=== PATIENT | male | born 1980 | race Caucasian/White ===

== ENCOUNTER 2021-08-16 19:35 | Emergency (ER) | payer MEDICAID, OTHER ==
[2021-08-16] MEDS ORDERED: Benzonatate 100 MG Cap PO ONE (20:01)
[2021-08-16] MEDS ORDERED: Albuterol 6.7 GM Inhaler INH ONE (20:36)
--- NOTE | 2021-08-16 20:44 | EDM.PDOC ---
ED HPI GENERAL MEDICAL PROBLEM - General Chief Complaint: General Stated Complaint: shortness of breath Time Seen by Provider: 08/16/21 20:00 Source of Information: Reports: Patient, Significant Other History Limitations: Reports: No Limitations - History of Present Illness INITIAL COMMENTS - FREE TEXT/NARRATIVE: Patient presents to the ED Covid positive since the with symptoms since the . He was seen in the [place] ED and given MAB. Was not sent home with anything for outpatient treatment. He is the only one at home with Covid, rest are vaccinated. [place] but quarantining. He has congestion in his chest, feels short of breath with activity and has coughing fits that don't stop. He has taken a few doses of motrin, not using any inhalers or cough medications. No longer having fevers. Feeling very fatigued and wanted evaluation in the ED. 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 He has been restless at night. Duration: Getting Worse Treatments DOGGER: Reports: Other (see below) Other Treatments DOGGER: ibuprofen right ear pain Pain Score (Numeric/FACES): 5 - Related Data Allergies Allergy/AdvReac Type Severity Reaction Status Date / Time No Known Allergies Allergy Verified 08/16/21 19:42 Home Meds: Home Meds Acetaminophen [Tylenol] 650 mg PO Q4HR PRN 08/16/21 [History] Albuterol [Proventil Neb Soln] 1.25 mg NEB Q4HRRT PRN #30 ml 08/16/21 [Rx] Allopurinol [Zyloprim] 300 mg PO DAILY PRN 08/16/21 [History] Amoxicillin 1,000 mg PO ONETIME 08/16/21 [History] Benzonatate [Tessalon Perles] 100 mg PO Q8H PRN #30 cap 08/16/21 [Rx] Budesonide 1 mg IH BID #30 ampul.neb 08/16/21 [Rx] Ibuprofen 600 mg PO Q6HR PRN 08/16/21 [History] Past Medical History HEENT History: Reports: Other (See Below) Other HEENT History: deviated septum Musculoskeletal History: Reports: Gout Endocrine/Metabolic History: Reports: Obesity/BMI 30+ - Past Surgical History HEENT Surgical History: Reports: Other (See Below) Other HEENT Surgeries/Procedures: deviated septum repair Social & Family History - Tobacco Use Tobacco Use Status *Q: Former Tobacco User Years of Tobacco use: 3 Packs/Tins Daily: 1 Used Tobacco, but Quit: Yes Month/Year Tobacco Last Used: 9 yr AGO - Caffeine Use Caffeine Use: Reports: None - Recreational Drug Use Recreational Drug Use: No ED ROS GENERAL - Review of Systems Review Of Systems: See Below Constitutional: Reports: Malaise, Weakness, Night Sweats, Decreased Appetite Respiratory: Reports: Shortness of Breath, Pleuritic Chest Pain, Cough, Sputum Cardiovascular: Reports: Dyspnea on Exertion, Lightheadedness. Denies: Edema Endocrine: Reports: Fatigue GI/Abdominal: Reports: No Symptoms. Denies: Abdominal Pain, Black Stool, Bloody Stool, Diarrhea, Hematemesis, Melena : Reports: No Symptoms Musculoskeletal: Reports: Muscle Pain Skin: Denies: No Symptoms Neurological: Reports: Dizziness Psychiatric: Reports: No Symptoms ED EXAM, GENERAL - Physical Exam Exam: See Below Exam Limited By: No Limitations General Appearance: Alert, WD/WN, No Apparent Distress Eye Exam: Bilateral Eye: EOMI, Normal Inspection, PERRL Nose: Normal Inspection, Normal Mucosa Throat/Mouth: Normal Inspection, Normal Teeth, Normal Voice Head: Atraumatic Neck: Normal Inspection Respiratory/Chest: Decreased Breath Sounds (at bases), Other (increased work of breathing, no restractions, no rub or crackles) Cardiovascular: Normal Peripheral Pulses, Regular Rate, Rhythm, No Edema, No Murmur GI/Abdominal: Normal Bowel Sounds, Soft Extremities: Normal Inspection, Normal Range of Motion, Non-Tender, No Pedal Edema Neurological: Alert, Oriented, CN II-XII Intact, Normal Cognition, No Motor/Sensory Deficits #1 Interpretation EKG Date: 08/16/21 Time: 20:21 Rhythm: NSR Rate (Beats/Min): 83 Justin: Normal P-Wave: Present QRS: Normal ST-T: Other (slight elevation in V1-2) QT: Normal Comparison: NA - No Prior EKG Course - Vital Signs Last Recorded V/S: Last Vital Signs Temp 37.7 C 08/16/21 19:36 Pulse 82 08/16/21 19:44 Resp 24 H 08/16/21 19:44 BP 128/77 08/16/21 19:44 Pulse Ox 97 08/16/21 19:44 - Orders/Labs/Meds Orders: Active Orders 24 hr Category Date Time Status EKG Documentation Completion [RC] ASDIRECTED Care 08/16/21 20:02 Ordered Incentive Spirometry [RT Incentive Spirometry] [RC] Care 08/16/21 20:37 Ordered Q1HWA CBC WITH AUTO DIFF [HEME] Stat Lab 08/16/21 20:00 Ordered COMPREHENSIVE METABOLIC PN,CMP [CHEM] Stat Lab 08/16/21 20:00 Ordered CRP [C-REACTIVE PROTEIN] [CHEM] Stat Lab 08/16/21 20:00 Ordered D-DIMER QUANTITATIVE [COAG] Stat Lab 08/16/21 20:00 Ordered TROPONIN I HIGH SENSITIVITY [CHEM] Stat Lab 08/16/21 20:00 Ordered EKG 12 Lead [EK] Stat Ther 08/16/21 20:01 Ordered Meds: Medications Discontinued Medications Generic Name Dose Route Start Last Admin Trade Name Blaineq PRN Reason Stop Dose Admin Albuterol 0 gm 08/16/21 20:36 Albuterol 6.7 Gm Inhaler INH 08/16/21 20:37 ONETIME ONE Benzonatate 200 mg 08/16/21 20:01 Benzonatate 100 Mg Cap PO 08/16/21 20:02 ONETIME ONE - Re-Assessments/Exams Free Text/Narrative Re-Assessment/Exam: 08/16/21 20:49 long discussion with and patient. Has normal vitals other than respiratory rate. Can offer lab evaluation, ekg. Will send home with albuterol inhaler, nebulizer for albuterol and budesonide, tessalon and discussed delsym cough medication. incentive spirometer 10 repetitions every hour while awake. prone sleeping and laying for at least 12 hours. 08/16/21 21:02 was not able to get enough blood for everything and patient refuses further attempts. did ambulate him and he did not drop his oxygen sats below 98%. Departure - Departure Time of Disposition: 21:00 Disposition: Home, Self-Care 01 Condition: Fair Clinical Impression: COVID-19, Cough - Discharge Information *PRESCRIPTION DRUG MONITORING PROGRAM REVIEWED*: Not Applicable *COPY OF PRESCRIPTION DRUG MONITORING REPORT IN PATIENT ALE: Not Applicable Prescriptions: Budesonide 1 mg IH BID #30 ampul.neb Albuterol [Proventil Neb Soln] 1.25 mg NEB Q4HRRT PRN #30 ml PRN Reason: Cough Benzonatate [Tessalon Perles] 100 mg PO Q8H PRN #30 cap PRN Reason: Cough Instructions: COVID-19 Frequently Asked Questions, 10 Things You Can Do to Manage Your COVID-19 Symptoms at Home - [facility] (03/09/2021), Prone Position Therapy, How to Use an Incentive Spirometer, Incentive Spirometer Record Additional Instructions: Use the tessalon perrles to help with cough every 8 hours along with Delsym cough medication over the counter. Take motrin for body aches with food. Use the incentive spirometer 10 repetitions every hour while awake Use the nebulizer that you purchase at the pharmacy with albuterol every 4 hours for chest tightness or cough. this will make you feel jittery and make your heart rate fast. Use the budesonide twice a day and try to have at least 2 hours between this and the albuterol The blood tests we did get revealed no heart inflammation or heart attack, normal electrolytes and liver and kidney function. Stay well hydrated. remember that even after a 10 day quarantine some people are still positive for covid and can continue to spread it. Wear a face mask when out and about Follow up with your PCP if you continue to feel like you have covid long haul syndrome Sepsis Event Note (ED) - Evaluation Sepsis Screening Result: No Definite Risk - Focused Exam Vital Signs: Vital Signs Temp Pulse Resp BP Pulse Ox 08/16/21 19:44 82 24 H 128/77 97 08/16/21 19:36 37.7 C 86 21 H 133/78 99 - My Orders Last 24 Hours: My Active Orders 08/16/21 20:00 CBC WITH AUTO DIFF [HEME] Stat COMPREHENSIVE METABOLIC PN,CMP [CHEM] Stat CRP [C-REACTIVE PROTEIN] [CHEM] Stat D-DIMER QUANTITATIVE [COAG] Stat TROPONIN I HIGH SENSITIVITY [CHEM] Stat 08/16/21 20:01 EKG 12 Lead [EK] Stat 08/16/21 20:02 EKG Documentation Completion [RC] ASDIRECTED 08/16/21 20:37 Incentive Spirometry [RT Incentive Spirometry] [RC] Q1HWA - Assessment/Plan Last 24 Hours: My Active Orders 08/16/21 20:00 CBC WITH AUTO DIFF [HEME] Stat COMPREHENSIVE METABOLIC PN,CMP [CHEM] Stat CRP [C-REACTIVE PROTEIN] [CHEM] Stat D-DIMER QUANTITATIVE [COAG] Stat TROPONIN I HIGH SENSITIVITY [CHEM] Stat 08/16/21 20:01 EKG 12 Lead [EK] Stat 08/16/21 20:02 EKG Documentation Completion [RC] ASDIRECTED 08/16/21 20:37 Incentive Spirometry [RT Incentive Spirometry] [RC] Q1HWA
[2021-08-16 20:56] LABS: ANION GAP 14.9 meq/L (7-15); CHLORIDE,CL 106 mmol/L (98-107); SODIUM,NA 141 mmol/L (136-145)
== END 2021-08-16 21:10 | disposition home or self-care (01) ==
LOC: LL.ED 19:35
DX: U07.1 COVID-19 (principal); E66.9 Obesity, unspecified; Z68.39 Body mass index [BMI] 39.0-39.9, adult; Z87.891 Personal history of nicotine dependence
CPT/HCPCS: 36415; 80053; 84484; 86140; 93005; 99284-25; A9270-GY

== ENCOUNTER 2022-04-27 21:01 | Emergency (ER) | payer OTHER ==
[2022-04-27] MEDS: Morphine 2 MG/ML SYRINGE ONE ×2 (21:10→21:20)
[2022-04-27] MEDS: LORazepam 2 MG/ML SDV ONE (21:20)
[2022-04-27] MEDS ORDERED: Sodium Chloride 0.9% 10 ML Syringe FLUSH PRN (21:32)
[2022-04-27 21:47] LABS: ANION GAP 10.8 meq/L (7-15); CHLORIDE,CL 105 mmol/L (98-107); SODIUM,NA 142 mmol/L (136-145)
[2022-04-27 21:48] LABS: ESTIMATED GFR 66 mL/min (>=60)
[2022-04-27] MEDS: Sodium Chloride 0.9% 1,000 ML IV ONE (22:23)
[2022-04-27] MEDS: Morphine 2 MG/ML SYRINGE IVPUSH ONE (22:46)
[2022-04-27] MEDS: Ketorolac 30 MG/ML SDV IM ONE (23:26)
[2022-04-27] MEDS: Cyclobenzaprine 10 MG Tab PO ONE (23:47)
[2022-04-28] MEDS: Morphine 2 MG/ML SYRINGE ONE (05:32)
== END 2022-04-28 00:33 | disposition home or self-care (01) ==
LOC: LL.ED 21:01
DX: S06.0X1A Concussion with loss of consciousness of 30 minutes or less, initial encounter (principal); S00.83XA Contusion of other part of head, initial encounter; S90.415A Abrasion, left lesser toe(s), initial encounter; M25.511 Pain in right shoulder; E66.9 Obesity, unspecified; Z68.43 Body mass index [BMI] 50.0-59.9, adult; Z87.891 Personal history of nicotine dependence; V80.010A Animal-rider injured by fall from or being thrown from horse in noncollision accident, initial encounter; Y93.52 Activity, horseback riding
CPT/HCPCS: 36415; 70450; 70486; 72125; 73030; 73660; 80053; 85025; 86850; 86900; 86901; 93005; 94761; 96361; 96372; 96374; 99285; A9270; J1885; J2060; J2270; J7030

== ENCOUNTER 2022-04-29 21:57 | Emergency (ER) | payer OTHER ==
[2022-04-29 23:00] LABS: ANION GAP 11.1 meq/L (7-15)
[2022-04-30] MEDS: Ondansetron 4 MG Tab.DIS PO ONE (00:12)
[2022-04-30] MEDS: Ketorolac 30 MG/ML SDV IM ONE (00:13)
[2022-04-30] MEDS: Cephalexin 250 MG Cap PO ONE (00:13)
[2022-04-30] MEDS: HYDROmorphone 1 MG/ML Syringe IM ONE (00:14)
[2022-04-30] MEDS: methylPREDNISolone Sodium Succinate 125 MG/2 ML SDV IM ONE (00:16)
[2022-04-30] MEDS: Diazepam 5 MG Tab PO ONE (00:59)
[2022-04-30] MEDS: Diazepam 5 MG Tab ONE (01:59)
== END 2022-04-30 01:30 | disposition home or self-care (01) ==
LOC: LL.ED 21:57
DX: S06.0X1A Concussion with loss of consciousness of 30 minutes or less, initial encounter (principal); S91.202A Unspecified open wound of left great toe with damage to nail, initial encounter; E66.9 Obesity, unspecified; Z68.43 Body mass index [BMI] 50.0-59.9, adult; V80.010A Animal-rider injured by fall from or being thrown from horse in noncollision accident, initial encounter
CPT/HCPCS: 36415; 70450; 71045; 73030-LT; 80053; 81003; 83735; 85025; 96372; 99284; A9270-GY; J1170; J1885; J2930

== ENCOUNTER 2022-05-04 14:30 | Emergency (ER) | payer OTHER ==
[2022-05-04] MEDS ORDERED: Lidocaine 1% 5 ML VIAL INJECT ONE (14:41)
[2022-05-04] MEDS ORDERED: Bacitracin/Neomycin/Polymyxin B Oint 0.9 GM U/D Packet ONE (14:44)
== END 2022-05-04 15:56 | disposition home or self-care (01) ==
LOC: LL.ED 14:30
DX: S61.213A Laceration without foreign body of left middle finger without damage to nail, initial encounter (principal); F17.210 Nicotine dependence, cigarettes, uncomplicated; E66.9 Obesity, unspecified; W31.89XA Contact with other specified machinery, initial encounter
CPT/HCPCS: 12001; 99282; 99283

== ENCOUNTER 2022-11-30 20:24 | Emergency (ER) | payer OTHER ==
[2022-11-30] MEDS: Ketorolac 30 MG/ML SDV IVPUSH ONE (21:20)
[2022-11-30] MEDS: Sodium Chloride 0.9% 10 ML Syringe FLUSH PRN (21:26)
[2022-11-30] MEDS: Sodium Chloride 0.9% 1,000 ML IV ONE (21:26)
[2022-11-30 21:27] LABS: ANION GAP 11.7 meq/L (7-15); CHLORIDE,CL 101 mmol/L (98-107); SODIUM,NA 140 mmol/L (136-145)
[2022-11-30 21:28] LABS: ESTIMATED GFR 64 mL/min (>=60)
[2022-11-30 21:56] LABS: CORONAVIRUS COVID-19 NAA NEGATIVE (NEGATIVE); RESPIRATORY SYNCYTIAL VIR NAA NEGATIVE (NEGATIVE)
[2022-12-01] MEDS: Take Home: Albuterol 6.7 GM Inhaler, 1 Inhaler Pack INH ONE (00:26)
[2022-12-01] MEDS: Erythromycin Base 0.5% Ophth Oint 3.5 GM Tube EYEBOTH ONE (00:26)
[2022-12-01 01:22] VITALS: BP 125/90; PULSE 84
== END 2022-12-01 00:40 | disposition home or self-care (01) ==
LOC: LL.ED 20:24
DX: B34.9 Viral infection, unspecified (principal); E66.9 Obesity, unspecified; Z68.42 Body mass index [BMI] 45.0-49.9, adult; Z91.018 Allergy to other foods; Z20.822 Contact with and (suspected) exposure to COVID-19
CPT/HCPCS: 0241U; 36415; 71046; 80053; 81003; 85025; 96361; 96374; 99283; 99283-25; A9270-GY; J1885; J3490; J7030

== ENCOUNTER 2023-06-01 21:43 | Emergency (ER) | payer OTHER ==
[2023-06-01] MEDS ORDERED: methylPREDNISolone Sodium Succinate 125 MG/2 ML SDV IM ONE (22:37)
[2023-06-01] MEDS ORDERED: Ketorolac 30 MG/ML SDV IM ONE (22:41)
== END 2023-06-01 23:00 | disposition home or self-care (01) ==
LOC: LL.ED 21:43
DX: M10.9 Gout, unspecified (principal); E66.9 Obesity, unspecified; Z79.899 Other long term (current) drug therapy; Z91.018 Allergy to other foods; Z68.41 Body mass index [BMI] 40.0-44.9, adult
CPT/HCPCS: 36415; 84550; 96372; 99283; J1885; J2930

== ENCOUNTER 2024-07-10 22:49 | Emergency (ER) | payer OTHER ==
[2024-07-10] MEDS: Take Home: Acetaminophen/HYDROcodone 325-5 MG, 5 Tab Pack PO ONE (23:19)
== END 2024-07-10 23:20 | disposition home or self-care (01) ==
LOC: LL.ED 22:49
DX: M10.9 Gout, unspecified (principal); E66.9 Obesity, unspecified; Z68.42 Body mass index [BMI] 45.0-49.9, adult; Z91.018 Allergy to other foods; Z79.899 Other long term (current) drug therapy
CPT/HCPCS: 99283; A9270-GY

== ENCOUNTER 2024-12-06 21:22 | Emergency (ER) | payer OTHER ==
[2024-12-06] MEDS: Take Home: oxyCODONE HCl 5 MG Tab, 5 Tab Pack PO ONE (22:00)
== END 2024-12-06 22:05 | disposition home or self-care (01) ==
LOC: LL.ED 21:22
DX: M10.9 Gout, unspecified (principal); Z91.018 Allergy to other foods; Z79.899 Other long term (current) drug therapy
CPT/HCPCS: 99283; 99284; A9270-GY